=== PATIENT | female | born 1985 | race Caucasian/White ===

== ENCOUNTER 2019-04-18 14:53 | Emergency (ER) | payer MEDICAID ==
[~2019-04-18] VITALS: Ht 167.6 cm; Wt 78.0 kg
[2019-04-18 15:38] VITALS: Ht 167.6 cm; Wt 78.0 kg
[2019-04-18 17:56] VITALS: BP 108/48
== END 2019-04-18 17:56 | disposition home or self-care (01) ==
LOC: ED 14:53
DX: J02.9 Acute pharyngitis, unspecified (principal); M79.10 Myalgia, unspecified site; J45.909 Unspecified asthma, uncomplicated; F41.0 Panic disorder [episodic paroxysmal anxiety]; Z87.442 Personal history of urinary calculi
CPT/HCPCS: J0696; J7512

== ENCOUNTER 2019-10-15 04:42 | Emergency (ER) | payer MEDICAID ==
[~2019-10-15] VITALS: Ht 167.6 cm; Wt 72.6 kg
[2019-10-15 04:45] VITALS: Ht 167.6 cm; Wt 72.6 kg
[2019-10-15 07:11] VITALS: BP 112/54
== END 2019-10-15 07:11 | disposition home or self-care (01) ==
LOC: ED 04:42
DX: J45.901 Unspecified asthma with (acute) exacerbation (principal)
CPT/HCPCS: 87804; J7512; J7613; J7644; Q0092

== ENCOUNTER 2020-09-21 08:14 | Emergency (ER) | payer OTHER ==
[~2020-09-21] VITALS: Ht 167.6 cm; Wt 77.1 kg
[2020-09-21 08:27] VITALS: BP 138/85; Ht 167.6 cm; Wt 77.1 kg
[2020-09-21 09:22] LABS: CALCIUM 8.9 mg/dL (8.5-10.1); CARBON DIOXIDE 27.2 mmol/L (21-32); CHLORIDE SERUM 103 mmol/L (98-107); CREATININE SERUM 0.7 mg/dL (0.6-1.0); GFR1 > 60 mL/min; GLUCOSE SERUM 94 mg/dL (74-106); POTASSIUM SERUM 3.9 mmol/L (3.5-5.1); SODIUM SERUM 141 mmol/L (136-145)
[2020-09-21 09:23] LABS: BASOPHIL % 1.5 % (0-2); RED CELL DISTRIBUTION WIDTH 12.9 % (11.5-14.5)
[2020-09-21 09:28] LABS: PLATELET COUNT 405 x10^3mcL (130-400)
[2020-09-21 09:35] LABS: ALBUMIN 4.1 g/dL (3.4-5.0); ALKALINE PHOSPHATASE 79 U/L (46-116); ALT/SGPT 22 U/L (14-59); AST/SGOT 8 U/L (15-37); BILIRUBIN TOTAL 0.27 mg/dL (0.20-1.00); T4(THYROXINE) 7.6 ug/dL (4.7-13.3)
== END 2020-09-21 12:12 | disposition home or self-care (01) ==
LOC: ED 08:14
PROVIDERS: Emergency Medicine
DX: E04.1 Nontoxic single thyroid nodule (principal); R03.0 Elevated blood-pressure reading, without diagnosis of hypertension; J45.909 Unspecified asthma, uncomplicated; F17.210 Nicotine dependence, cigarettes, uncomplicated